=== PATIENT | female | born 1995 | race Caucasian/White ===

== ENCOUNTER 2016-07-29 18:06 | Emergency (ER) | payer OTHER ==
[2016-07-29 18:11] VITALS: RESP 16
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
--- NOTE | 2016-07-29 19:17 | CT ---
Noncontrast Head CT Indication: Trauma. Technique: Standard noncontrast axial CT images of the head were performed. Dose reduction techniq ues were utilized. Findings: No intracranial hemorrhage, mass effect, swelling, or extraaxial fluid collection. The ve ntricles are normal caliber and midline. The bones appear unremarkable. The paranasal sinuses are clear. Impression: Normal noncontrast CT of the brain. Results called to Dr. Nancy Isaac at 7:15 PM at the time of the interpretation.
[2016-07-29 19:32] VITALS: BP 123/74; PULSE 86; TEMP 97.9; O2SAT 97
== END 2016-07-29 19:31 | disposition home or self-care (01) ==
DX: S06.0X0A Concussion without loss of consciousness, initial encounter (principal); Z87.891 Personal history of nicotine dependence; V49.49XA Driver injured in collision with other motor vehicles in traffic accident, initial encounter; Y92.410 Unspecified street and highway as the place of occurrence of the external cause; Y99.8 Other external cause status; Y93.89 Activity, other specified

== ENCOUNTER 2016-11-28 16:59 | Emergency (ER) | payer OTHER ==
[2016-11-28 17:10] VITALS: O2SAT 98
[2016-11-28] MEDS ORDERED: chlordiazePOXIDE 25 MG CAP PO ONE ×2 (17:18→18:52)
[2016-11-28] MEDS ORDERED: LORazepam 2 MG/ML INJ IVP ONE (17:18)
--- NOTE | 2016-11-28 17:38 | EDPHY ---
H & P Stated Complaint: Tremors, confused. stopped drinking abruptly. Time Seen by Provider: 11/28/16 17:13 HPI/ROS: Chief complaint: Tremulousness History of present illness: This is a 21-year-old female who presents to the emergency department for tremulousness. Patient reports she has been feeling tremulous for the last 3 days. She further reports she is feeling unwell stating she feels somewhat confused. She is concerned this is secondary to her alcohol use. She does report a history of alcohol use. She reports that for the last month she has been drinking upwards of 10 drinks of Tequila daily. She reports prior to the onset of tremulousness she stopped drinking abruptly. She does state last night she had a few drinks which improved symptoms but the symptoms returned on ceasing alcohol again today. She denies other associated signs or symptoms including no fevers, no actual pain, no paresthesias, no weakness or paralysis, no bowel or bladder dysfunction. Review of systems: A 10 point review of systems was obtained and other than described above was negative - Personal History LMP (Females 10-55): 8-14 Days Ago Current Tetanus/Diphtheria Vaccine: Yes Current Tetanus Diphtheria and Acellular Pertussis (TDAP): Yes - Medical/Surgical History Hx Asthma: No Hx Chronic Respiratory Disease: No Hx Diabetes: No Hx Cardiac Disease: No Hx Renal Disease: No Hx Cirrhosis: No Hx Alcoholism: No Hx HIV/AIDS: No Hx Splenectomy or Spleen Trauma: No Other PMH: insomnia, depression, anxiety, bipolar, adhd - Social History Smoking Status: Former smoker - Physical Exam Exam: General Appearance: Alert, nontoxic. Eyes: Pupils equal and round no pallor or injection. ENT, Mouth: Mucous membranes moist. Respiratory: There are no retractions, lungs are clear to auscultation. Cardiovascular: Regular rate and rhythm. Gastrointestinal: Abdomen is soft and non tender, no masses, bowel sounds normal. Neurological: Alert and oriented x4. Cranial nerves 2-12 grossly intact. Strength and sensation intact and symmetrical. No pronator drift. Significant tremulousness is noted. Skin: Warm and dry, no rashes. Musculoskeletal: Neck is supple non tender. Extremities are symmetrical, full range of motion. Psychiatric: Patient is oriented X 3, there is no agitation. Constitutional: Initial Vital Signs Temperature (C) 36.6 C 11/28/16 17:06 Heart Rate 103 H 11/28/16 17:06 Respiratory Rate 20 11/28/16 17:06 Blood Pressure 148/128 H 11/28/16 17:06 O2 Sat (%) 98 11/28/16 17:06 O2 Delivery Mode Room Air Allergies/Adverse Reactions: No Known Allergies Allergy (Unverified 07/29/16 18:11) Home Medications: Medication Instructions Recorded Cymbalta 11/28/16 Inderal 10mg (*) 11/28/16 Vayarin Capsule 11/28/16 buPROPion 11/28/16 traZODone 11/28/16 Medical Decision Making ED Course/Re-evaluation: Patient is discussed with my secondary supervising physician Dr. Rob Tyson. Patient presents to the emergency department reporting tremulousness. She further reports feeling confused. On presentation she is mildly tachycardic and hypertensive. She is tremulous. Baseline blood studies are unremarkable. She is symptomatically treated with IV fluids and benzodiazepines for suspected alcohol withdrawal with significant improvement in symptoms. On re-evaluation she states she is feeling well. Her mother is at bedside. I have offered to arrange to have her go to detox but she has declined. She will be discharged with her mother. They plan on going to her mother's house so her mother can care for her. She is given extra doses of Librium she can take at home to continue to treat her withdrawal. Home care is further discussed including hydration. I discussed following up with her primary care doctor for recheck and the importance of seeking care for her alcohol abuse. Strict return precautions are given. Patient voiced understanding and agreement with plan. Differential Diagnosis: Included but not limited to alcohol intoxication, alcohol withdrawal, DTs, infections of multiple etiologies, electrolyte disturbances - Data Points Laboratory Results: Laboratory Results 11/28/16 17:35 11/28/16 17:35 11/28/16 11/28/16 11/28/16 17:35 17:35 17:35 WBC 7.11 10^3/uL 10^3/uL (3.80-9.50) RBC 4.85 10^6/uL 10^6/uL (4.18-5.33) Hgb 16.0 g/dL g/dL (12.6-16.3) Hct 44.2 % % (38.0-47.0) MCV 91.1 fL fL (81.5-99.8) MCH 33.0 pg pg (27.9-34.1) MCHC 36.2 g/dL g/dL (32.4-36.7) RDW 12.2 % % (11.5-15.2) Plt Count 254 10^3/uL 10^3/uL (150-400) MPV 8.3 fL L fL (8.7-11.7) Neut % (Auto) 66.8 % % (39.3-74.2) Lymph % (Auto) 24.5 % % (15.0-45.0) [place] % (Auto) 6.8 % % (4.5-13.0) Eos % (Auto) 1.0 % % (0.6-7.6) Baso % (Auto) 0.6 % % (0.3-1.7) Nucleat RBC Rel Count 0.0 % % (0.0-0.2) Absolute Neuts (auto) 4.76 10^3/uL 10^3/uL (1.70-6.50) Absolute Lymphs (auto) 1.74 10^3/uL 10^3/uL (1.00-3.00) Absolute Monos (auto) 0.48 10^3/uL 10^3/uL (0.30-0.80) Absolute Eos (auto) 0.07 10^3/uL 10^3/uL (0.03-0.40) Absolute Basos (auto) 0.04 10^3/uL 10^3/uL (0.02-0.10) Absolute Nucleated RBC 0.00 10^3/uL 10^3/uL (0-0.01) Immature Gran % 0.3 % % (0.0-1.1) Immature Gran # 0.02 10^3/uL 10^3/uL (0.00-0.10) Sodium 139 mEq/L mEq/L (134-144) Potassium 3.6 mEq/L mEq/L (3.5-5.2) Chloride 101 mEq/L mEq/L (97-110) Carbon Dioxide 27 mEq/l mEq/l (22-31) Anion Gap 11 mEq/L mEq/L (8-16) BUN 12 mg/dL mg/dL (7-23) Creatinine 0.7 mg/dL mg/dL (0.6-1.0) Estimated GFR > 60 Glucose 127 mg/dL H mg/dL (70-100) Calcium 10.1 mg/dL mg/dL (8.5-10.4) Beta HCG, Qual NEGATIVE Ethyl Alcohol < 10 mg/dL mg/dL (0-10) Medications Given: Discontinued Medications Chlordiazepoxide (Librium 25 Mg Prepack#6) 1 btl TAKEHOME EDNOW ONE Stop: 11/28/16 18:47 Last Admin: 11/28/16 18:54 Dose: Not Given Chlordiazepoxide HCl (Librium) 25 mg PO EDNOW ONE Stop: 11/28/16 17:19 Last Admin: 11/28/16 17:43 Dose: 25 mg Chlordiazepoxide HCl (Librium) 50 mg PO EDNOW ONE Stop: 11/28/16 18:53 Last Admin: 11/28/16 19:09 Dose: 50 mg Lorazepam (Ativan Injection) 1 mg IVP EDNOW ONE Stop: 11/28/16 17:19 Last Admin: 11/28/16 17:43 Dose: 1 mg Departure - Departure Disposition: Home, Routine, Self-Care Clinical Impression: Alcohol withdrawal Qualifiers: Complication of substance-induced condition: uncomplicated Qualified Code(s): F10.230 - Alcohol dependence with withdrawal, uncomplicated Condition: Good Instructions: Abuse of Alcohol (ED), Alcohol Withdrawal (ED), Alcohol Dependence (ED) Additional Instructions: Please follow-up with your primary care doctor this week for recheck Please avoid the use of alcohol Please seek treatment for your alcohol abuse Drink plenty of fluids such as water and electrolyte drinks to stay hydrated You can take Librium 25 mg every 6 hours as needed for symptoms If symptoms worsen or new symptoms develop return to the emergency room for recheck Referrals: HEATHER CAPUTO [Primary Care Provider] - As per Instructions [facility] 24 Hours [Outside] - As per Instructions
[2016-11-28 17:49] LABS: % IMMATURE GRANULYOCYTES 0.3 % (0.0-1.1); ABSOLUTE IMMATURE GRANULOCYTES 0.02 10^3/uL (0.00-0.10); ADD DIFF? NO; ADD MORPH? NO; ADD SCAN? NO; ATYPICAL LYMPHOCYTE FLAG 70 (0-99); FRAGMENT RBC FLAG 0 (0-99); HEMATOCRIT 44.2 % (38.0-47.0); LEFT SHIFT FLG 0 (0-99); LIPEMIA HEMOLYSIS FLAG 90 (0-99); MEAN CELL HEMOGLOBIN CONCENTR. 36.2 g/dL (32.4-36.7); MEAN CELL VOLUME 91.1 fL (81.5-99.8); MEAN PLATELET VOLUME 8.3 fL (8.7-11.7); PLATELET CLUMPS FLAG 0 (0-99); PLATELET COUNT 254 10^3/uL (150-400); RED BLOOD CELL COUNT 4.85 10^6/uL (4.18-5.33); RED CELL DISTRIBUTION WIDTH 12.2 % (11.5-15.2)
[2016-11-28 18:01] LABS: ANION GAP 11 mEq/L (8-16); CALCIUM 10.1 mg/dL (8.5-10.4); CARBON DIOXIDE 27 mEq/l (22-31); CHLORIDE 101 mEq/L (97-110); CREATININE 0.7 mg/dL (0.6-1.0); ETHANOL SERUM < 10 mg/dL (0-10); GLOMERULAR FILTRATION RATE > 60; GLUCOSE 127 mg/dL (70-100); POTASSIUM 3.6 mEq/L (3.5-5.2); SODIUM 139 mEq/L (134-144)
[2016-11-28] MEDS: CHLORDIAZEPOXIDE 25MG PREPK#6 BTL TAKEHOME ONE ×2 (18:50→18:54)
[2016-11-28 19:11] VITALS: BP 148/96; PULSE 98; RESP 16; TEMP 98.4
== END 2016-11-28 19:09 | disposition home or self-care (01) ==
DX: F10.230 Alcohol dependence with withdrawal, uncomplicated (principal); Z87.891 Personal history of nicotine dependence
CPT/HCPCS: 96374; G0480; J2060